=== PATIENT | female | born 1950 | race Caucasian/White ===

== ENCOUNTER → 2023-12-13 | Outpatient (CLI) | payer OTHER ==
[2023-12-13 09:03] LABS: Basophils # (auto) 0 10 ^3/uL (0-0.2); Basophils % (auto) 0.6 % (0.0-2.0); Eosinophils # (auto) 0.2 10 ^3/uL (0-0.8); Eosinophils % (auto) 2.8 % (0.0-7.0); Hematocrit 46.7 % (36.0-46.0); Hemoglobin 15.8 g/dL (12.2-16.2); Lymphocytes % (auto) 30.3 % (10.0-50.0); Mean Corpuscular Hemoglobin 29.6 pg (28.0-32.0); Mean Corpuscular Hgb Conc. 33.8 g/dL (32.0-36.0); Mean Corpuscular Volume 87.4 fL (80.0-100.0); Monocytes # (auto) 0.5 10 ^3/uL (0-1.3); Monocytes % (auto) 7.5 % (0.0-12.0); Neutrophils # (auto) 3.9 10 ^3/uL (1.6-8.6); Neutrophils % (auto) 58.8 % (37.0-80.0); Nucleated Red Blood Cells % 0.1 %; Red Blood Cells 5.35 10^6/uL (4.0-5.20); Red Cell Distribution Width 13.9 % (11.8-14.3); White Blood Cell 6.6 10^3/uL (4.4-10.8)
[2023-12-13 09:20] LABS: Urine Bacteria FEW /hpf (None Seen); Urine Blood 3+ /uL (Negative); Urine Clarity Clear (Clear); Urine Color Yellow (Yellow); Urine Hyaline Cast FEW /lpf (0 - 2); Urine Mucus FEW (None Seen); Urine Protein, UAD TRACE (Negative); Urine Specific Gravity 1.023 (1.001-1.035); Urine Urobilinogen Normal (Negative); Urine WBC 37 /hpf (0 - 5)
[2023-12-13 09:22] LABS: Alanine Aminotransferase 15 U/L (7-40); Alkaline Phosphatase 79 U/L (46-116); Anion Gap 5 (5-15); Aspartate Aminotransferase 48 U/L (13-40); BUN/Creatinine Ratio 14.4 (10.0-20.0); Bilirubin, Total 0.6 mg/dL (0.2-1.0); Blood Urea Nitrogen 13 mg/dL (9-23); Calcium 10.4 mg/dL (8.7-10.4); Carbon Dioxide 27 mmol/L (20-30); Chloride 103 mmol/L (98-107); Glucose 93 mg/dL (74-106); Potassium 3.8 mmol/L (3.5-5.1); Sodium 135 mmol/L (136-145); Uric Acid 5.9 mg/dL (3.1-7.8)
[2023-12-13 09:23] LABS: Total Protein 7.5 g/dL (5.7-8.2)
[2023-12-13 09:25] LABS: Folate (Folic Acid) > 24.00 ng/mL (>5.38)
[2023-12-13 09:26] LABS: Free T4 (Free Thyroxine) 1.03 ng/dL (0.89-1.76)
[2023-12-13 09:41] LABS: Triglycerides 128 mg/dL (< 150)
[2023-12-13 09:42] LABS: CRP High Sensitivity 0.51 mg/dL (<1.0); LDL Cholesterol 89 mg/dL (< 100)
[2023-12-13 09:43] LABS: HDL Cholesterol 38 mg/dL (40-59)
[2023-12-13 09:44] LABS: Cholesterol 139 mg/dL (< 200)
[2023-12-13 10:04] LABS: Erythrocyte Sedimentation Rate 15 mm/hr (0-20)
[2023-12-14 08:07] LABS: Anti-Nuclear Antibody Direct Negative (Negative); Rheumatoid Arthritis Factor <10.0 IU/mL (<14.0)
== END | disposition home or self-care (01) ==
LOC: LAB 08:28
PROVIDERS: ATTEND Internal Medicine
DX: D51.9 Vitamin B12 deficiency anemia, unspecified (principal); E61.2 Magnesium deficiency; E78.9 Disorder of lipoprotein metabolism, unspecified; R68.89 Other general symptoms and signs; R78.89 Finding of other specified substances, not normally found in blood; R73.09 Other abnormal glucose; E79.0 Hyperuricemia without signs of inflammatory arthritis and tophaceous disease; E85.9 Amyloidosis, unspecified; R82.90 Unspecified abnormal findings in urine
CPT/HCPCS: 36415; 80053; 80061; 81001; 82306; 82607; 82746; 83036; 83735; 84439; 84443; 84550; 85025; 85652; 86038; 86141; 86200; 86431; 86812; 87086

== ENCOUNTER → 2024-03-12 | Outpatient (CLI) | payer OTHER ==
[2024-03-12 14:08] LABS: Urine Bacteria None Seen /hpf (None Seen)
[2024-03-12 14:11] LABS: Basophils # (auto) 0 10 ^3/uL (0-0.2); Basophils % (auto) 0.7 % (0.0-2.0); Eosinophils # (auto) 0.2 10 ^3/uL (0-0.8); Eosinophils % (auto) 3.7 % (0.0-7.0); Hematocrit 44.7 % (36.0-46.0); Hemoglobin 14.9 g/dL (12.2-16.2); Lymphocytes # (auto) 2.3 10 ^3/uL (0.4-5.4); Lymphocytes % (auto) 34.9 % (10.0-50.0); Mean Corpuscular Hemoglobin 29.8 pg (28.0-32.0); Mean Corpuscular Hgb Conc. 33.2 g/dL (32.0-36.0); Mean Corpuscular Volume 89.6 fL (80.0-100.0); Monocytes # (auto) 0.5 10 ^3/uL (0-1.3); Monocytes % (auto) 7.4 % (0.0-12.0); Neutrophils # (auto) 3.6 10 ^3/uL (1.6-8.6); Neutrophils % (auto) 53.3 % (37.0-80.0); Nucleated Red Blood Cells % 0.1 %; Red Blood Cells 4.99 10^6/uL (4.0-5.20); Red Cell Distribution Width 13.7 % (11.8-14.3); White Blood Cell 6.7 10^3/uL (4.4-10.8)
[2024-03-12 14:35] LABS: Urine Blood 2+ /uL (Negative); Urine Budding Yeast OCCASIONAL /hpf (None Seen); Urine Clarity Clear (Clear); Urine Color Yellow (Yellow); Urine Protein, UAD Negative (Negative); Urine Urobilinogen Normal (Negative); Urine WBC 3 /hpf (0 - 5); Urine pH 6.5 (5.0-9.0)
[2024-03-12 14:43] LABS: Alanine Aminotransferase < 9 U/L (7-40); Albumin 4.9 g/dL (3.2-4.8); Alkaline Phosphatase 102 U/L (46-116); Anion Gap 7 (5-15); Aspartate Aminotransferase 25 U/L (13-40); BUN/Creatinine Ratio 20.2 (10.0-20.0); Blood Urea Nitrogen 20 mg/dL (9-23); Calcium 10.8 mg/dL (8.5-10.1); Carbon Dioxide 26 mmol/L (20-30); Chloride 109 mmol/L (98-107); Cholesterol 156 mg/dL (< 200); Glucose 88 mg/dL (74-106); HDL Cholesterol 46 mg/dL (40-59); LDL Cholesterol 97 mg/dL (< 100); Magnesium 2.1 mg/dL (1.6-2.6); Potassium 4.2 mmol/L (3.5-5.1); Sodium 142 mmol/L (136-145); Triglycerides 126 mg/dL (< 150)
[2024-03-12 14:44] LABS: Bilirubin, Total 0.4 mg/dL (0.2-1.0); Total Protein 7.1 g/dL (5.7-8.2)
[2024-03-12 15:10] LABS: Folate (Folic Acid) > 48.00 ng/mL (>5.38)
[2024-03-12 15:23] LABS: Uric Acid 5.9 mg/dL (3.1-7.8)
== END | disposition home or self-care (01) ==
LOC: LAB 13:53
PROVIDERS: ATTEND Internal Medicine
DX: E78.9 Disorder of lipoprotein metabolism, unspecified (principal); R78.89 Finding of other specified substances, not normally found in blood; R68.89 Other general symptoms and signs; R73.09 Other abnormal glucose; E61.2 Magnesium deficiency; E79.0 Hyperuricemia without signs of inflammatory arthritis and tophaceous disease; E85.9 Amyloidosis, unspecified; R82.90 Unspecified abnormal findings in urine; D51.9 Vitamin B12 deficiency anemia, unspecified
CPT/HCPCS: 36415; 80053; 80061; 81001; 82306; 82607; 82746; 83036; 83735; 84443; 84550; 85025; 87086

== ENCOUNTER → 2024-06-12 | Outpatient (CLI) | payer OTHER ==
[2024-06-12 12:41] LABS: Urine Bacteria None Seen /hpf (None Seen)
[2024-06-12 13:21] LABS: Albumin 4.6 g/dL (3.2-4.8); Alkaline Phosphatase 100 U/L (46-116); Anion Gap 5 (5-15); Aspartate Aminotransferase 25 U/L (13-40); BUN/Creatinine Ratio 19.1 (10.0-20.0); Bilirubin, Total 0.4 mg/dL (0.2-1.0); Blood Urea Nitrogen 18 mg/dL (9-23); Calcium 10.4 mg/dL (8.7-10.4); Carbon Dioxide 26 mmol/L (20-30); Chloride 111 mmol/L (98-107); Cholesterol 165 mg/dL (< 200); Glucose 91 mg/dL (74-106); HDL Cholesterol 41 mg/dL (40-59); LDL Cholesterol 106 mg/dL (< 100); Magnesium 2.1 mg/dL (1.6-2.6); Sodium 142 mmol/L (136-145); Total Protein 6.9 g/dL (5.7-8.2); Triglycerides 144 mg/dL (< 150)
[2024-06-12 13:24] LABS: Urine Blood Negative /uL (Negative); Urine Clarity Clear (Clear); Urine Color Yellow (Yellow); Urine Protein, UAD Negative (Negative); Urine Specific Gravity 1.024 (1.001-1.035); Urine Urobilinogen Normal (Negative); Urine WBC 19 /hpf (0 - 5)
[2024-06-12 13:27] LABS: Alanine Aminotransferase < 9 U/L (7-40)
[2024-06-12 13:39] LABS: Folate (Folic Acid) 42.14 ng/mL (>5.38)
[2024-06-12 13:46] LABS: Uric Acid 6.4 mg/dL (3.1-7.8)
== END | disposition home or self-care (01) ==
LOC: LAB 12:21
PROVIDERS: ATTEND Internal Medicine
DX: E78.00 Pure hypercholesterolemia, unspecified (principal); E55.9 Vitamin D deficiency, unspecified; Z68.38 Body mass index [BMI] 38.0-38.9, adult
CPT/HCPCS: 36415; 80053; 80061; 81001; 82306; 82607; 82746; 83036; 83735; 84443; 84550; 87086

== ENCOUNTER → 2024-07-24 | Outpatient (CLI) | payer OTHER ==
[2024-07-24 13:24] LABS: Free T3 2.83 pg/mL (2.3-4.2)
[2024-07-24 13:25] LABS: Free T4 (Free Thyroxine) 1.43 ng/dL (0.89-1.76); T3 Total 1.24 ng/mL (0.60-1.81)
[2024-07-25 08:06] LABS: Free Thyroxine Index 3.2 (1.2-4.9); Thyroxine (T4) 12.2 ug/dL (4.5-12.0)
== END | disposition home or self-care (01) ==
LOC: LAB 11:22
PROVIDERS: ATTEND Internal Medicine
DX: E03.9 Hypothyroidism, unspecified (principal); E55.9 Vitamin D deficiency, unspecified; M54.2 Cervicalgia
CPT/HCPCS: 36415; 84439; 84443; 84480; 84481

== ENCOUNTER → 2024-09-12 | Outpatient (CLI) | payer OTHER ==
[2024-09-12 08:18] LABS: Urine Bacteria None Seen /hpf (None Seen)
[2024-09-12 09:01] LABS: Urine Blood Negative /uL (Negative); Urine Clarity Clear (Clear); Urine Color Light-Yellow (Yellow); Urine Protein, UAD Negative (Negative); Urine Urobilinogen Normal (Negative); Urine WBC 6 /hpf (0 - 5); Urine pH 5.5 (5.0-9.0)
[2024-09-12 09:10] LABS: Basophils # (auto) 0.1 10 ^3/uL (0-0.2); Eosinophils # (auto) 0.3 10 ^3/uL (0-0.8); Eosinophils % (auto) 5.5 % (0.0-7.0); Hematocrit 44.6 % (36.0-46.0); Lymphocytes # (auto) 2.1 10 ^3/uL (0.4-5.4); Lymphocytes % (auto) 34.9 % (10.0-50.0); Mean Corpuscular Hemoglobin 30.3 pg (28.0-32.0); Mean Corpuscular Hgb Conc. 33.7 g/dL (32.0-36.0); Monocytes # (auto) 0.6 10 ^3/uL (0-1.3); Monocytes % (auto) 10.6 % (0.0-12.0); Neutrophils # (auto) 2.8 10 ^3/uL (1.6-8.6); Nucleated Red Blood Cells % 0.1 %; Platelet Count (auto) 206 10^3/uL (140-450); Red Blood Cells 4.95 10^6/uL (4.0-5.20); Red Cell Distribution Width 14.1 % (11.8-14.3); White Blood Cell 5.9 10^3/uL (4.4-10.8)
[2024-09-12 10:14] LABS: Alkaline Phosphatase 93 U/L (46-116)
[2024-09-12 10:15] LABS: Anion Gap 9 (5-15); BUN/Creatinine Ratio 25.6 (10.0-20.0); Blood Urea Nitrogen 23 mg/dL (9-23); Calcium 10.8 mg/dL (8.7-10.4); Carbon Dioxide 27 mmol/L (20-31); Chloride 108 mmol/L (98-107); Glucose 92 mg/dL (74-106); Potassium 4.2 mmol/L (3.5-5.1); Sodium 144 mmol/L (136-145); Triglycerides 194 mg/dL (< 150)
[2024-09-12 10:16] LABS: Albumin 4.4 g/dL (3.2-4.8); Aspartate Aminotransferase 23 U/L (13-40); LDL Cholesterol 68 mg/dL (< 100)
[2024-09-12 10:17] LABS: Bilirubin, Total 0.5 mg/dL (0.2-1.0); Cholesterol 129 mg/dL (< 200); HDL Cholesterol 41 mg/dL (40-59)
[2024-09-12 10:18] LABS: Total Protein 6.8 g/dL (5.7-8.2)
[2024-09-12 10:32] LABS: Alanine Aminotransferase < 9 U/L (7-40)
[2024-09-12 11:25] LABS: Free T3 4.4 pg/mL (2.3-4.2); Free T4 (Free Thyroxine) 1.77 ng/dL (0.89-1.76); T3 Total 1.55 ng/mL (0.60-1.81)
== END | disposition home or self-care (01) ==
LOC: LAB 07:49
PROVIDERS: ATTEND Internal Medicine
DX: J06.9 Acute upper respiratory infection, unspecified (principal); E55.9 Vitamin D deficiency, unspecified; E03.9 Hypothyroidism, unspecified; D51.9 Vitamin B12 deficiency anemia, unspecified; R82.79 Other abnormal findings on microbiological examination of urine; E79.0 Hyperuricemia without signs of inflammatory arthritis and tophaceous disease; R94.6 Abnormal results of thyroid function studies; E61.2 Magnesium deficiency
CPT/HCPCS: 36415; 80053; 80061; 81001; 82306; 82607; 83036; 84439; 84443; 84480; 84481; 85025; 87086

== ENCOUNTER → 2025-01-15 | Outpatient (CLI) | payer OTHER ==
[2025-01-15 08:48] LABS: Urine Bacteria None Seen /hpf (None Seen)
[2025-01-15 09:05] LABS: Basophils # (auto) 0 10 ^3/uL (0-0.2); Basophils % (auto) 0.7 % (0.0-2.0); Eosinophils # (auto) 0.2 10 ^3/uL (0-0.8); Hematocrit 40.9 % (36.0-46.0); Hemoglobin 14.1 g/dL (12.2-16.2); Lymphocytes # (auto) 1.7 10 ^3/uL (0.4-5.4); Mean Corpuscular Hemoglobin 30.4 pg (28.0-32.0); Mean Corpuscular Hgb Conc. 34.3 g/dL (32.0-36.0); Mean Corpuscular Volume 88.4 fL (80.0-100.0); Monocytes # (auto) 0.5 10 ^3/uL (0-1.3); Monocytes % (auto) 7.6 % (0.0-12.0); Neutrophils # (auto) 3.9 10 ^3/uL (1.6-8.6); Neutrophils % (auto) 61.7 % (37.0-80.0); Platelet Count (auto) 267 10^3/uL (140-450); Red Blood Cells 4.63 10^6/uL (4.0-5.20); Red Cell Distribution Width 14.8 % (11.8-14.3); White Blood Cell 6.4 10^3/uL (4.4-10.8)
[2025-01-15 09:06] LABS: Urine Blood Negative /uL (Negative); Urine Clarity Clear (Clear); Urine Color Light-Yellow (Yellow); Urine Mucus FEW (None Seen); Urine Protein, UAD Negative (Negative); Urine Specific Gravity 1.025 (1.001-1.035); Urine Squamous Epithelial Cell FEW /hpf (<5); Urine Urobilinogen Normal (Negative); Urine WBC 3 /HPF (0-5)
[2025-01-15 09:26] LABS: Alkaline Phosphatase 92 U/L (46-116); Anion Gap 6 (5-15); BUN/Creatinine Ratio 24.3 (10.0-20.0); Carbon Dioxide 28 mmol/L (20-31); Glucose 97 mg/dL (74-106); LDL Cholesterol 68 mg/dL (< 100); Potassium 4.1 mmol/L (3.5-5.1); Sodium 143 mmol/L (136-145); Total Protein 6.9 g/dL (5.7-8.2); Triglycerides 138 mg/dL (< 150)
[2025-01-15 09:27] LABS: Albumin 4.7 g/dL (3.2-4.8); Aspartate Aminotransferase 18 U/L (13-40); Bilirubin, Total 0.4 mg/dL (0.2-1.0); Cholesterol 130 mg/dL (< 200); HDL Cholesterol 43 mg/dL (40-59)
[2025-01-15 09:28] LABS: Alanine Aminotransferase < 9 U/L (7-40); Blood Urea Nitrogen 26 mg/dL (9-23); Calcium 10.7 mg/dL (8.7-10.4); Chloride 109 mmol/L (98-107)
[2025-01-15 09:32] LABS: Folate (Folic Acid) 20.67 ng/mL (>5.38)
[2025-01-15 09:57] LABS: Uric Acid 6.4 mg/dL (3.1-7.8)
== END | disposition home or self-care (01) ==
LOC: LAB 08:33
PROVIDERS: ATTEND Internal Medicine
DX: E61.2 Magnesium deficiency (principal); E55.9 Vitamin D deficiency, unspecified; D51.9 Vitamin B12 deficiency anemia, unspecified; E78.49 Other hyperlipidemia; E79.0 Hyperuricemia without signs of inflammatory arthritis and tophaceous disease; R94.6 Abnormal results of thyroid function studies; R82.79 Other abnormal findings on microbiological examination of urine; R82.998 Other abnormal findings in urine; R73.09 Other abnormal glucose; R68.89 Other general symptoms and signs; R82.90 Unspecified abnormal findings in urine
CPT/HCPCS: 36415; 80053; 80061; 81001; 82306; 82607; 82746; 83036; 84443; 84550; 85025; 87086

== ENCOUNTER 2025-04-08 14:10 | Outpatient (CLI) | payer OTHER | END 2025-04-08 17:00 | disposition home or self-care (01) | LOC: LAB 14:10 | PROVIDERS: ATTEND Internal Medicine Endocrinology, Diabetes & Metabolism | DX: E03.9 Hypothyroidism, unspecified (principal) | CPT/HCPCS: 36415; 84439; 84443; 86376 ==

== ENCOUNTER → 2025-04-30 | Outpatient (CLI) | payer OTHER | END | disposition home or self-care (01) | LOC: LAB 14:24 | PROVIDERS: ATTEND Internal Medicine Endocrinology, Diabetes & Metabolism | DX: E03.9 Hypothyroidism, unspecified (principal) | CPT/HCPCS: 36415; 84439; 84443 ==

== ENCOUNTER 2025-06-16 08:04 | Outpatient (CLI) | payer OTHER ==
[2025-06-16 09:09] LABS: Hematocrit 43.0 % (36.0-46.0); Hemoglobin 14.6 g/dL (12.2-16.2); Mean Corpuscular Hemoglobin 30.8 pg (28.0-32.0); Mean Corpuscular Volume 90.6 fL (80.0-100.0); Nucleated Red Blood Cells % 0.1 %
[2025-06-16 09:14] LABS: Urine Protein, UAD Negative (Negative)
[2025-06-16 09:27] LABS: Alanine Aminotransferase 17 U/L (7-40); Alkaline Phosphatase 81 U/L (46-116); Anion Gap 9 (5-15); BUN/Creatinine Ratio 14.5 (10.0-20.0); Blood Urea Nitrogen 19 mg/dL (9-23); Calcium 10.1 mg/dL (8.7-10.4); Carbon Dioxide 26 mmol/L (20-31); Chloride 105 mmol/L (98-107); Glucose 80 mg/dL (74-106); Magnesium 1.9 mg/dL (1.6-2.6); Potassium 4.2 mmol/L (3.5-5.1); Sodium 140 mmol/L (136-145); Total Protein 6.3 g/dL (5.7-8.2); Triglycerides 124 mg/dL (< 150)
[2025-06-16 09:28] LABS: Albumin 4.6 g/dL (3.2-4.8); Cholesterol 149 mg/dL (< 200); HDL Cholesterol 47 mg/dL (40-59)
[2025-06-16 09:31] LABS: Bilirubin, Total 0.2 mg/dL (0.2-1.0)
[2025-06-16 10:19] LABS: Uric Acid 6.4 mg/dL (3.1-7.8)
[2025-06-16 10:59] LABS: Free T4 (Free Thyroxine) 0.61 ng/dL (0.89-1.76)
== END 2025-06-16 17:00 | disposition home or self-care (01) ==
LOC: LAB 08:04
PROVIDERS: ATTEND Internal Medicine
DX: E11.9 Type 2 diabetes mellitus without complications (principal); E03.9 Hypothyroidism, unspecified; E78.49 Other hyperlipidemia; E61.2 Magnesium deficiency; E66.3 Overweight; E79.0 Hyperuricemia without signs of inflammatory arthritis and tophaceous disease; E55.9 Vitamin D deficiency, unspecified; D51.9 Vitamin B12 deficiency anemia, unspecified; R82.79 Other abnormal findings on microbiological examination of urine; R13.19 Other dysphagia; R68.89 Other general symptoms and signs; R82.90 Unspecified abnormal findings in urine; R82.998 Other abnormal findings in urine; R94.6 Abnormal results of thyroid function studies
CPT/HCPCS: 36415; 80053; 80061; 81001; 82306; 82533; 82607; 82746; 83036; 83735; 84436; 84439; 84443; 84480; 84550; 85025; 87086

== ENCOUNTER 2025-08-11 08:53 | Outpatient (CLI) | payer OTHER | END 2025-08-11 17:00 | disposition home or self-care (01) | LOC: LAB 08:53 | PROVIDERS: ATTEND Internal Medicine Endocrinology, Diabetes & Metabolism | DX: E03.9 Hypothyroidism, unspecified (principal); E66.3 Overweight | CPT/HCPCS: 36415; 82533; 84439; 84443 ==

== ENCOUNTER 2025-09-08 09:58 | Outpatient (CLI) | payer OTHER ==
[2025-09-08 10:44] LABS: Urine Protein, UAD Negative (Negative)
[2025-09-08 10:46] LABS: Hematocrit 43.5 % (36.0-46.0); Hemoglobin 14.9 g/dL (12.2-16.2); Mean Corpuscular Hemoglobin 31.3 pg (28.0-32.0); Mean Corpuscular Volume 91.5 fL (80.0-100.0); Nucleated Red Blood Cells % 0.1 %
[2025-09-08 11:05] LABS: Alanine Aminotransferase 32 U/L (7-40); Albumin 4.7 g/dL (3.2-4.8); Alkaline Phosphatase 84 U/L (46-116); BUN/Creatinine Ratio 18.4 (10.0-20.0); Calcium 10.3 mg/dL (8.7-10.4); Carbon Dioxide 28 mmol/L (20-31); Cholesterol 167 mg/dL (< 200); Glucose 90 mg/dL (74-106); HDL Cholesterol 50 mg/dL (40-59); Magnesium 2.1 mg/dL (1.6-2.6); Potassium 4.2 mmol/L (3.5-5.1); Sodium 144 mmol/L (136-145); Total Protein 7.2 g/dL (5.7-8.2)
[2025-09-08 11:06] LABS: Bilirubin, Total 0.4 mg/dL (0.2-1.0)
[2025-09-08 11:09] LABS: Blood Urea Nitrogen 23 mg/dL (9-23); Triglycerides 167 mg/dL (< 150)
[2025-09-08 11:17] LABS: Anion Gap 7 (5-15); Chloride 109 mmol/L (98-107)
== END 2025-09-08 17:00 | disposition home or self-care (01) ==
LOC: LAB 09:58
PROVIDERS: ATTEND Internal Medicine
DX: N18.31 Chronic kidney disease, stage 3a (principal); E03.9 Hypothyroidism, unspecified; E78.00 Pure hypercholesterolemia, unspecified; E55.9 Vitamin D deficiency, unspecified
CPT/HCPCS: 36415; 80053; 80061; 81001; 82306; 82607; 83036; 83735; 84443; 85025; 87086

== ENCOUNTER 2025-09-16 03:39 | Inpatient (IN) | payer OTHER ==
[~2025-09-16] VITALS: Ht 160 cm; Wt 77.1 kg
--- NOTE | 2025-09-16 04:04 | ED.PDOC ---
History of Present Illness HPI Comments 74-year-old female who is brought in by ambulance for chief complaint of confusion. Per EMS personnel report, patient is a transfer from [facility] after being found with a UTI when, initially, evaluated for confusion, which began this morning. Patient has a history of frequent UTIs. She has no further acute complaints at this time. REVIEW OF SYSTEMS: General: No fever, no chills, or fatigue HEENT: No sore throat, no earache, no congestion, no neck pain. Cardiac: No chest pain. No palpitations. Lungs: No shortness of breath, no cough. GI: No nausea, no vomiting, no diarrhea, no constipation, no abdominal pain : No dysuria, frequency, or urgency. No hematuria. Musculoskeletal: No joint pain , no joint swelling, no extremity edema. Skin: No rash, no itching. Neuro: No headache, no dizziness, no weakness Psychiatric: Confusion (And as sated in HPI) PHYSICAL EXAM: General: Awake, alert and oriented. No acute distress. Skin: Skin in warm, dry and intact. Appropriate color for ethnicity. HEENT: The head is normocephalic and atraumatic. Conjunctivae are clear without exudates or hemorrhage. Sclera is non-icteric. Eyelids are normal in appearance without swelling or lesions. Oral mucosa is pink and moist Neck: The neck is supple with normal range of motion. No JVD. Cardiac: Heart rate and rhythm are normal. No murmurs, gallops, or rubs are auscultated. Respiratory: No signs of respiratory distress. Lung sounds are clear in all lobes bilaterally without rales, rhonchi, or wheezes. Abdominal: Abdomen is soft, non-tender without distention, guarding or rigidity. Bowel sounds are present and normoactive in all four quadrants. Extremities: Upper and lower extremities are atraumatic in appearance without deformity or edema. Neurological: The patient is awake, alert and oriented to person, place, but not time with normal speech. Speech is clear. There is no facial asymmetry. Psychiatric: Appropriate mood and affect. Good judgement and insight. Chief Complaint: Confusion Time Seen by MD: 03:50 (Quick no) Reviewed Notes: Nurses Notes, Materials Analyst Notes Allergies: Coded Allergies: NO KNOWN ALLERGIES (Unverified , 09/16/25) Information Source: Patient, Transfer Record, Emergency Med Personnel Mode of Arrival: EMS Severity: Moderate Timing: Hours Duration: Since onset Prehospital treatment: 12 Lead EKG, Accucheck, Emergency Dept Tech Past Medical History PAST MEDICAL HISTORY: UTI'S Social History Smoker: Non-Smoker Alcohol: Denies ETOH Use Drugs: Denies Drug Use Lives In: Home Was a procedure done? Was a procedure done?: No EKG EKG : [place]: Normal Cardiac Rhythm: NSR Block: None Hypertrophy: None ST: Normal Differential Dx Considerations may include: Differential diagnosis considered includes but not limited to intracranial hemorrhage, stroke, head injury, seizure, metabolic disturbance, electrolyte imbalance, infection, substance intoxication, psychiatric cause, other systemic illness, other X-Ray, Labs, Meds, VS Vital Signs Date Time Temp Pulse Resp B/P (MAP) Pulse Ox O2 Delivery O2 Flow Rate FiO2 09/16/25 03:50 97.8 58 16 138/78 98 97.8 09/16/25 03:50 63 Lab Test 09/16/25 04:15 Range/Units White Blood Count Pending Red Blood Count Pending Hemoglobin Pending Hematocrit Pending Mean Corpuscular Volume Pending Mean Corpuscular Hemoglobin Pending Mean Corpuscular Hemoglobin Concent Pending Red Cell Distribution Width Pending Platelet Count Pending Mean Platelet Volume Pending Neutrophils (%) (Auto) Pending Lymphocytes (%) (Auto) Pending Monocytes (%) (Auto) Pending Basophils (%) (Auto) Pending Neutrophils # (Auto) Pending Lymphocytes # (Auto) Pending Monocytes # (Auto) Pending Sodium Level Pending Potassium Level Pending Chloride Level Pending Carbon Dioxide Level Pending Anion Gap Pending Blood Urea Nitrogen Pending Creatinine Pending Glomerular Filtration Rate Calc Pending BUN/Creatinine Ratio Pending Serum Glucose Pending Calcium Level Pending Time of 1ST Reevaluation: 03:57 Reevaluation 1ST: Unchanged Patient Education/Counseling: Need For Follow Up Family Education/Counseling: No Family Present SEPSIS Sepsis Screen Physician Orders Complete Blood Count (09/16/25 03:49) Basic Metabolic Panel (09/16/25 03:49) Urinalysis (09/16/25 03:49) Vital Signs Date Time Temp Pulse Resp B/P (MAP) Pulse Ox O2 Delivery O2 Flow Rate FiO2 09/16/25 03:50 97.8 58 16 138/78 98 97.8 09/16/25 03:50 63 Laboratory Tests Test 09/16/25 04:15 White Blood Count Pending Departure 1 Departure Time of Disposition: 04:26 Impression: Primary Impression: Altered mental status Additional Impression: UTI (urinary tract infection) Disposition: ADMITTED INPATIENT Condition: Stable Comments MDM: Patient admitted to hospitalist service for further treatment, evaluation and monitoring. Extensive evaluation was performed in attempt to identify or rule out: (See differential diagnosis section) The following tests were ordered, and results were reviewed by me and discussed with patient: (See diagnostic results section) The following test were independently interpreted by me: UA, BMP, CBC I reviewed the following notes from the pt's past medical encounters: Encounter 09/15/2025 for [facility] Additional information was gathered from interviewing the following independent historians: EMS personnel Decision regarding hospitalization or escalation of hospital level of care: Risk and benefits of admission for further treatment of patient's condition was considered. Due to patient's current clinical condition, high risk of decline and poor outcome if discharged and need for further inpatient management and monitoring, patient will be admitted to the hospital. Critical Care Note Critical Care Time?: No Stability Stability form required: No Heart Score Heart Score: Heart Score Response (Comments) Value History N/A 0 EKG N/A 0 Age N/A 0 Risk Factors N/A 0 Troponin N/A 0 Total 0 I personally scribed for KAY COLEY MD ([email or web address]) on 09/16/25 at 04:04. Electronically submitted by Young Rivero ([email or web address]). KAY COLEY MD Sep 16, 2025 04:04
--- NOTE | 2025-09-16 04:17 | ECG ---
[facility] Test Date: 2025-09-16 Test Time: 03:50:30 Pat Name: MARY SOW Department: ED Room: [address] [place] [address] Gender: F Client Support Analyst: DEYSI : 1950 Requested By: KAY COLEY Order Number: [id number] Reading MD: Asad Hill Measurements Intervals Walsh Rate: 63 P: 11 CA: 126 QRS: -62 QRSD: 118 T: 85 QT: 437 QTc: 448 Interpretive Statements Sinus rhythm Ventricular premature complex Left anterior fascicular block Probable anterolateral infarct, old Electronically Signed On 09-16-2025 18:00:18 PST by Asad Hill Please click the below link to view image of tracing.
[2025-09-16 04:39] LABS: Hematocrit 41.3 % (36.0-46.0); Hemoglobin 14.2 g/dL (12.2-16.2); Mean Corpuscular Hemoglobin 31.2 pg (28.0-32.0); Mean Corpuscular Volume 90.8 fL (80.0-100.0); Nucleated Red Blood Cells % 0.0 %
[2025-09-16 04:44] VITALS: PULSE 55; RESP 12; O2SAT 99
[2025-09-16 04:44] LABS: Potassium 3.5 mmol/L (3.5-5.1); Sodium 142 mmol/L (136-145)
[2025-09-16 04:45] LABS: Anion Gap 10 (5-15); Carbon Dioxide 21 mmol/L (20-31); Chloride 111 mmol/L (98-107)
[2025-09-16 04:46] LABS: Calcium 9.9 mg/dL (8.7-10.4)
[2025-09-16 04:50] LABS: Glucose 84 mg/dL (74-106)
[2025-09-16 04:51] LABS: BUN/Creatinine Ratio 20.0 (10.0-20.0); Blood Urea Nitrogen 19 mg/dL (9-23)
[2025-09-16 07:30] VITALS: PULSE 60; RESP 10; O2SAT 98
[2025-09-16 11:08] LABS: Urine Budding Yeast OCCASIONAL /hpf (None Seen); Urine Protein, UAD Negative (Negative)
[2025-09-16] MEDS ORDERED: ONDANSETRON HCL 4 MG/2 ML VIAL IV PRN (13:15)
[2025-09-16] MEDS ORDERED: ACETAMINOPHEN 325 MG TAB PO PRN (13:15)
[2025-09-16] MEDS ORDERED: DOCUSATE SOD 100 MG CAP PO PRN (13:15)
[2025-09-16] MEDS ORDERED: ROSU10TA64 PO (14:08)
[2025-09-16] MEDS ORDERED: LEVO100T8 PO (14:08)
[2025-09-16] MEDS ORDERED: LISI40TA16 PO (14:08)
[2025-09-16] MEDS ORDERED: RAME8TAB26 PO (14:08)
[2025-09-16] MEDS ORDERED: ROPI1TAB78 PO (14:08)
[2025-09-16] MEDS ORDERED: CITA-77 PO (14:08)
[2025-09-16] MEDS ORDERED: GABA800T97 PO (14:08)
--- NOTE | 2025-09-16 14:30 | DVHHP2 ---
History of Present Illness Reason for Visit: AL History of Present Illness Tiffanie Ospina is a 74-year-old female with past medical history of hypertension, peripheral neuropathy, and hypothyroidism, who came to the hospital for altered level of consciousness. The patient's earlier this year. She lives alone and her son lives in [place], they talk on the phone everyday. Yesterday when they were talking he noticed that she was confused and having a hard time keeping a conversation or answering simple questions. He then had a friend go to her house to check on her. When the friend arrived the patient was altered so she brought her to [facility]. At [facility] they did a head CT, and CTA of head and neck that came back normal. Her urine showed a UTI. Patient was transferred to [facility] for insurance purposes. [id number] was at the bedside on assessment, she states her mentation is already improved from where she was yesterday. Cardiovascular: HTN LOCAL GOVERNMENT LEGISLATOR: Periperal neuropathy Endocrine: Hypothyroidism Past Surgical History: Appendectomy, Tonsillectomy Smoke: No ALCOHOL: none Drugs: Marijuana Lives: Alone Domestic Violence: Neg Review of Systems Constitutional: No: Fever, Chills, Sweats, Weakness, Malaise, Other Eyes: No: Pain, Vision change, Conjunctivae inflammation, Eyelid inflammation, Other, Redness ENT: No: Ear pain, Ear discharge, Nose pain, Nose discharge, Nose congestion, Mouth pain, Mouth swelling, Throat pain, Throat swelling, Other Respiratory: No: Cough, Dry, Shortness of breath, SOB with excertion, Wheezing, Hemoptysis, Pleuritic Pain, Sputum, Wheezing, Other Cardiovascular: No: Chest Pain, Palpitations, Orthopnea, Paroxysmal Noc. Dyspnea, Edema, Lt Headedness, Other Gastrointestinal: No: Nausea, Vomiting, Abdominal Pain, Diarrhea, Constipation, Melena, Hematochezia, Other Genitourinary: No Dysuria, No Frequency, No Incontinence, No Hematuria, No Retention, No Other Musculoskeletal: No: other, neck pain, shoulder pain, arm pain, back pain, hand pain, leg pain, foot pain Skin: No: Rash, Lesions, Jaundice, Bruising, Other Neurological: Change in speech, Confusion; No: Weakness, Numbness, Incoordination, Seizures, Other Allergies: Coded Allergies: NO KNOWN ALLERGIES (Unverified , 09/16/25) Medications Current Medications Medications Dose Ordered Sig/Adrian Route Start Time Stop Time Status Last Admin Dose Admin Acetaminophen/ Hydrocodone Bitart 1 tab Q4HP PRN PO 09/16/25 13:15 UNV Ondansetron HCl 4 mg Q4HP PRN IV 09/16/25 13:15 UNV Docusate Sodium 100 mg BIDPRN PRN PO 09/16/25 13:15 UNV Acetaminophen 650 mg Q6HP PRN PO 09/16/25 13:15 UNV Exam Vital Signs Vital Signs Date Time Temp Pulse Resp B/P (MAP) Pulse Ox O2 Delivery O2 Flow Rate FiO2 09/16/25 13:00 55 11 14/77 (56) 96 09/16/25 07:30 97.9 97.9 09/16/25 07:30 Room Air* 0 21 General Appearance: Alert, Cooperative, mild distress, Other (Oriented x 1 ) HEENT: Atraumatic, PERRLA Respiratory: Clear to auscultation, Normal air movement Cardiovascular: Normal S1, Normal S2, No murmurs, Other (SB) Abdominal: Normal bowel sounds, Soft, No tenderness, No hepatospenomegaly Extremities: No clubbing, No cyanosis, No edema, Normal pulses Skin: No rashes, No breakdown, No significant lesion Neuro: Normal gait, Normal speech, Strength at 5/5 X4 ext, Normal tone Psych/Mental Status: Mood NL Labs/Xrays Labs Test 09/16/25 10:48 09/16/25 04:15 Range/Units Urine Color Yellow Yellow Urine Clarity Clear Clear Urine pH 7.5 5.0-9.0 Urine Specific [place] 1.042 H 1.001-1.035 Urine Protein Negative Negative Urine Ketones Negative Negative Urine Blood Negative Negative /uL Urine Nitrite Negative Negative Urine Bilirubin Negative Negative Urine Urobilinogen Normal Negative mg/dL Urine Leukocyte Esterase 2+ Negative /uL Urine RBC 3 0 - 4 /hpf Urine Microscopic WBC 12 H 0-5 /HPF Urine Squamous Epithelial Cells Few <5 /hpf Urine Bacteria None seen None Seen /hpf Urine Yeast (Budding) Occasional None Seen /hpf Urine Glucose Normal Normal mg/dL White Blood Count 8.9 4.4-10.8 10^3/uL Red Blood Count 4.55 4.0-5.20 10^6/uL Hemoglobin 14.2 12.2-16.2 g/dL Hematocrit 41.3 36.0-46.0 % Mean Corpuscular Volume 90.8 80.0-100.0 fL Mean Corpuscular Hemoglobin 31.2 28.0-32.0 pg Mean Corpuscular Hemoglobin Concent 34.4 32.0-36.0 g/dL Red Cell Distribution Width 14.0 11.8-14.3 % Platelet Count 225 140-450 10^3/uL Mean Platelet Volume 8.4 6.9-10.8 fL Neutrophils (%) (Auto) 65.2 37.0-80.0 % Lymphocytes (%) (Auto) 24.3 10.0-50.0 % Monocytes (%) (Auto) 8.0 0.0-12.0 % Eosinophils (%) (Auto) 2.1 0.0-7.0 % Basophils (%) (Auto) 0.4 0.0-2.0 % Neutrophils # (Auto) 5.8 1.6-8.6 10 ^3/uL Lymphocytes # (Auto) 2.1 0.4-5.4 10 ^3/uL Monocytes # (Auto) 0.7 0-1.3 10 ^3/uL Eosinophils # (Auto) 0.2 0-0.8 10 ^3/uL Basophils # (Auto) 0 0-0.2 10 ^3/uL Nucleated Red Blood Cells 0.0 % Sodium Level 142 136-145 mmol/L Potassium Level 3.5 3.5-5.1 mmol/L Chloride Level 111 H 98-107 mmol/L Carbon Dioxide Level 21 20-31 mmol/L Anion Gap 10 5-15 Blood Urea Nitrogen 19 9-23 mg/dL Creatinine 0.95 0.550-1.02 mg/dL Glomerular Filtration Rate Calc 62 >90 mL/min BUN/Creatinine Ratio 20.0 10.0-20.0 Serum Glucose 84 74-106 mg/dL Calcium Level 9.9 8.7-10.4 mg/dL SEPSIS Sepsis Screen Date sepsis recognized/suspect: Sep 16, 2025 Time Sepsis recognized/suspect: 729 Recent Procedure: No On Antibiotic Therapy: No Respiratory Rate >20: No Heart Rate >90: No Temp<36 C (96.8 F) or >38.3 C: No SBP <90 or MAP <65 mmHG: No New Acute Mental Status Change: Yes Is the patient on CPAP, BIPAP,: No Physician Orders Admit (09/16/25 13:08) Code Status (09/16/25 13:08) 2 Gm Sodium Diet (09/16/25 Lunch) Hydrocodone-Acet 5/325mg Tab ([place] /32 (09/16/25 13:15) Ondansetron Hcl (Zofran) (09/16/25 13:15) Docusate Sodium Capsule (Colace Capsule) (09/16/25 13:15) Complete Blood Count (09/17/25 04:00) Comprehensive Metabolic Panel (09/17/25 04:00) Condition: Serious (09/16/25 13:08) Acetaminophen Tablet (Tylenol Tablet) (09/16/25 13:15) Citalopram Tablet (Celexa Tablet) (09/17/25 10:00) Levothyroxine Tablet (Synthroid Tablet) (09/17/25 10:00) (Nf) Gabapentin (09/16/25 22:00) (Nf) Lisinopril (09/17/25 10:00) (Nf) Ropinirole Hydrochloride (Ropinirol (09/16/25 22:00) (Nf) Ramelteon (09/16/25 14:15) (Nf) Rosuvastatin Calcium (09/16/25 22:00) Vital Signs Date Time Temp Pulse Resp B/P (MAP) Pulse Ox O2 Delivery O2 Flow Rate FiO2 09/16/25 13:00 55 11 14/77 (56) 96 09/16/25 12:20 62 16 136/75 (95) 100 09/16/25 11:00 59 13 115/52 (73) 99 09/16/25 10:00 63 18 137/68 (91) 98 09/16/25 09:00 58 10 146/73 (97) 98 09/16/25 08:00 68 13 127/65 (85) 90 09/16/25 07:30 97.9 60 10 134/70 (91) 98 97.9 09/16/25 07:30 60 10 98 Room Air* 0 21 Laboratory Tests Test 09/16/25 04:15 White Blood Count 8.9 10^3/uL (4.4-10.8) Assessment/Plan Assessment/Plan Assessment: Altered mental status, Complicated UTI, Hypertension, Hypothyroidism, Neuropathy, Plan: Admit to Med-Surg, IV antibiotics, IV hydration, Urine culture, Chest X-ray, Consider neuro consult if symptoms persist, Consider brain MRI if symptoms persist, Home medications reconciled, Plan discussed with: Patient, Other ([id number]) My Orders Orders - LISA HUTCHINS Procedure Category Date Status Time Admit ADMIT 09/16/25 Transmitted 13:08 Code Status CODE 09/16/25 Transmitted 13:08 2 Gm Sodium Diet DIET 09/16/25 Transmitted Lunch Hydrocodone-Acet PHA 09/16/25 Logged 5/325mg Tab ([place] 13:15 Ondansetron Hcl PHA 09/16/25 Logged (Zofran) 13:15 Docusate Sodium PHA 09/16/25 Logged Capsule (Colace 13:15 Complete Blood Count LAB 09/17/25 Verified 04:00 Comprehensive LAB 09/17/25 Verified Metabolic Panel 04:00 Condition: Serious [place] 09/16/25 In Process 13:08 Acetaminophen Tablet PHA 09/16/25 Logged (Tylenol Tablet) 13:15 Citalopram Tablet PHA 09/17/25 Transmitted (Celexa Tablet) 10:00 Levothyroxine Tablet PHA 09/17/25 Transmitted (Synthroid Tablet) 10:00 (Nf) Gabapentin PHA 09/16/25 Transmitted 22:00 (Nf) Lisinopril PHA 09/17/25 Transmitted 10:00 (Nf) Ropinirole PHA 09/16/25 Transmitted Hydrochloride 22:00 (Nf) Ramelteon PHA 09/16/25 Transmitted 14:15 (Nf) Rosuvastatin PHA 09/16/25 Transmitted Calcium 22:00 Date of Service: Sep 16, 2025 Billing Provider: LISA HUTCHINS Common Visit Codes: [id number] INP/OBS CARE (MOD) LISA HUTCHINS Sep 16, 2025 14:30
--- NOTE | 2025-09-16 14:54 | DVH ---
EXAM: XY CHEST PORTABLE HISTORY: SOB TECHNIQUE: 1 view of the chest COMPARISON: XY CHEST TWO VIEWS ROUTINE on DOS: 11/13/24 FINDINGS/IMPRESSION: LUNGS: No pleural effusion, consolidation, or pneumothorax. Question appearance of peripheral interstitial edema. MEDIASTINUM: Unremarkable. Left anterior chest loop recorder BONES: No acute osseous abnormality. OTHER: None.
[2025-09-16 19:25] VITALS: PULSE 88; RESP 12; O2SAT 98
[2025-09-16 22:00] VITALS: BP 121/71; PULSE 58; RESP 18; TEMP 97.9; O2SAT 99
[2025-09-16 22:59] VITALS: RESP 18; O2SAT 95
[2025-09-16] MEDS: ATORVASTATIN 20 MG TAB PO SCH (23:27)
[2025-09-16] MEDS: GABAPENTIN 400 MG CAP PO SCH (23:27)
[2025-09-16] MEDS: HYDROcodone-ACET 5/325MG TAB PO PRN (23:55)
[2025-09-17 05:00] VITALS: BP 130/77; PULSE 60; RESP 17; TEMP 98; O2SAT 98
[2025-09-17] MEDS: LEVOTHYROXINE SODIUM 100 MCG TAB PO SCH (06:06)
[2025-09-17 06:08] LABS: Hematocrit 42.9 % (36.0-46.0); Hemoglobin 15.2 g/dL (12.2-16.2); Mean Corpuscular Hemoglobin 32.0 pg (28.0-32.0); Mean Corpuscular Volume 90.5 fL (80.0-100.0); Nucleated Red Blood Cells % 0.2 %
[2025-09-17 06:27] LABS: Alanine Aminotransferase 34 U/L (7-40); Albumin 4.7 g/dL (3.2-4.8); Alkaline Phosphatase 69 U/L (46-116); Anion Gap 10 (5-15); BUN/Creatinine Ratio 18.3 (10.0-20.0); Blood Urea Nitrogen 17 mg/dL (9-23); Calcium 10.0 mg/dL (8.7-10.4); Carbon Dioxide 22 mmol/L (20-31); Glucose 86 mg/dL (74-106); Potassium 3.8 mmol/L (3.5-5.1); Sodium 144 mmol/L (136-145); Total Protein 7.3 g/dL (5.7-8.2)
[2025-09-17 06:28] LABS: Bilirubin, Total 0.5 mg/dL (0.2-1.0)
[2025-09-17 06:34] LABS: Chloride 112 mmol/L (98-107)
[2025-09-17 08:00] VITALS: PULSE 61; RESP 18; O2SAT 99
[2025-09-17 09:16] VITALS: BP 141/75; PULSE 57; RESP 20; TEMP 97.7; O2SAT 98
[2025-09-17] MEDS: LISINOPRIL 20 MG TAB PO SCH (09:23)
[2025-09-17] MEDS: CITALOPRAM HYDROBR 20 MG TAB PO SCH (09:23)
[2025-09-17 13:00] VITALS: BP_SYST 141; BP_SYST 147; BP_DIAS 75; BP_DIAS 78; PULSE 57; PULSE 61; RESP 18; RESP 20; TEMP 97.7; TEMP 98; O2SAT 98; O2SAT 99
[2025-09-17] MEDS ORDERED: RAMELTEON 8 MG TABLET PO PRN (13:15)
--- NOTE | 2025-09-17 15:59 | DVHPN2 ---
Subjective Overnight events noted. Patient told me that she was here because of diarrhea worsening for last few days, also as per her son she was not making any sense. Changes from previous H/P or p: No Changes Eyes: No Pain, No Vision change, No Conjunctivae inflammation, No Eyelid inflammation, No Other, No Redness ENT: No Ear pain, No Ear discharge, No Nose pain, No Nose discharge, No Nose congestion, No Mouth pain, No Mouth swelling, No Throat pain, No Throat swelling, No Other Cardiovascular: No Chest Pain, No Palpitations, No Orthopnea, No Paroxysmal Noc. Dyspnea, No Edema, No Lt Headedness, No Other Respiratory: No Cough, No Dry, No Shortness of breath, No SOB with excertion, No Wheezing, No Hemoptysis, No Pleuritic Pain, No Sputum, No Other Gastrointestinal: No Nausea, No Vomiting, No Abdominal Pain, No Diarrhea, No Constipation, No Melena, No Hematochezia, No Other Genitourinary: No Dysuria, No Frequency, No Incontinence, No Hematuria, No Retention, No Other Musculoskeletal: No other, No neck pain, No shoulder pain, No arm pain, No back pain, No hand pain, No leg pain, No foot pain Skin: No Rash, No Lesions, No Jaundice, No Bruising, No Other Objective Vitals Vital Signs Date Time Temp Pulse Resp B/P (MAP) Pulse Ox O2 Delivery O2 Flow Rate FiO2 09/17/25 13:00 97.7 57 20 141/75 (97) 98 97.7 09/17/25 08:00 Room Air* 0 21 Intake/Output Intake and Output 09/17/25 07:00 Intake Total 200 ml Balance 200 ml Intake Oral 200 ml Exam HEENT pupils are reactive Neck is supple CV is S1-S2 regular rate and rhythm Respiratory bilateral carmencita -extremities no pedal edema 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 motor deficit Medications Current Medications Medications Dose Ordered Sig/Adrian Route Start Time Stop Time Status Last Admin Dose Admin Acetaminophen/ Hydrocodone Bitart 1 tab Q4HP PRN PO 09/16/25 13:15 09/16/25 23:55 1 TAB Ondansetron HCl 4 mg Q4HP PRN IV 09/16/25 13:15 Docusate Sodium 100 mg BIDPRN PRN PO 09/16/25 13:15 Acetaminophen 650 mg Q6HP PRN PO 09/16/25 13:15 Citalopram Hydrobromide 20 mg DAILY PO 09/17/25 10:00 09/17/25 09:23 20 MG Levothyroxine Sodium 100 mcg QAM PO 09/17/25 07:00 09/17/25 06:06 100 MCG Gabapentin 800 mg TID PO 09/16/25 22:00 09/17/25 13:23 800 MG Lisinopril 40 mg DAILY PO 09/17/25 10:00 09/17/25 09:23 40 MG Atorvastatin Calcium 20 mg HS PO 09/16/25 22:00 09/16/25 23:27 20 MG Ceftriaxone Sodium 50 ml @ 100 mls/hr DAILY@09 IV 09/16/25 17:35 09/17/25 09:23 100 MLS/HR Patient Own Medication 1 tab HS PO 09/17/25 22:00 Patient Own Medication 1 tab QHSP PRN PO 09/17/25 13:15 Laboratory Results Laboratory Tests 09/17/25 05:28 Chemistry Test 09/17/25 05:28 Albumin 4.7 g/dL (3.2-4.8) Calcium Level 10.0 mg/dL (8.7-10.4) Total Protein 7.3 g/dL (5.7-8.2) LFT Test 09/17/25 05:28 Alanine Aminotransferase (ALT) 34 U/L (7-40) Alkaline Phosphatase 69 U/L (46-116) Aspartate Amino Transferase (AST) 61 U/L (13-40) H Total Bilirubin 0.5 mg/dL (0.2-1.0) Urinalysis Test 09/16/25 10:48 Urine Color Yellow (Yellow) Urine Clarity Clear (Clear) Urine pH 7.5 (5.0-9.0) Urine Specific [place] 1.042 (1.001-1.035) Urine Protein Negative (Negative) Urine Ketones Negative (Negative) Urine Blood Negative /uL (Negative) Urine Nitrite Negative (Negative) Urine Bilirubin Negative (Negative) Urine Urobilinogen Normal mg/dL (Negative) Urine Leukocyte Esterase 2+ /uL (Negative) Urine RBC 3 /hpf (0 - 4) Urine Microscopic WBC 12 /HPF (0-5) H Urine Squamous Epithelial Cells Few /hpf (<5) Urine Bacteria None seen /hpf (None Seen) Urine Yeast (Budding) Occasional /hpf (None Urine Glucose Normal mg/dL (Normal) Microbiology Microbiology Date/Time Source Procedure Growth Status 09/16/25 10:48 Voided Urine Urine Culture - Preliminary No growth Resulted Assessment/Plan Assessment/Plan 74-year-old female with a known history of hypertension, dyslipidemia presented to the hospital with altered mental status found to have 1. Acute encephalopathy 2. UTI 3. Hypertension Four dyslipidemia Five hypothyroidism -follow up urine culture, blood cultures, CT head noncontrast -check stool bacterial culture and stool for C diff Plan discussed with: Patient My Orders Orders - DARCI JAVED MD Procedure Category Date Status Time Stool Bacterial BERENICE 09/17/25 Logged Culture 14:[address] 09/17/25 Transmitted 15:56 Date of Service: Sep 17, 2025 Billing Provider: DARCI JAVED MD Common Visit Codes: [id number] INP/OBS CARE(HIGH) DARCI JAVED MD Sep 17, 2025 15:59
[2025-09-17 16:49] VITALS: BP 102/75; PULSE 54; RESP 18; TEMP 98.3; O2SAT 98
--- NOTE | 2025-09-17 16:53 | DVH ---
EXAM: CT HEAD WITHOUT CONTRAST INDICATION: Altered mental status COMPARISON: None TECHNIQUE: CT of the head without intravenous contrast. Radiation Dose Information: CT Dose: CTDI volume is 57.58 mGy. Dose-length product is 1019.59 mGy*cm The dose indicators for CT are the volume Computed Tomography (CT) Dose Index (CTDIvol) and the Dose Length Product (DLP), and are measured in units of mGy and mGy-cm, respectively. These indicators are not patient dose, but values generated from the CT scanner acquisition factors. The report includes radiation exposure data for exposures received during this examination. Findings: Scattered hypoattenuation in the periventricular and subcortical white matter, suggestive of chronic microvascular disease. The ventricles and sulci are mildly enlarged, compatible with generalized parenchymal volume loss. There is no mass- effect, hemorrhage, midline shift, or abnormal extra-axial fluid collection visible. No calvarial fracture. Essentially clear visualized paranasal sinuses. Mastoid air cells are clear. IMPRESSION: No acute intracranial hemorrhage or mass effect.
[2025-09-17 21:00] VITALS: BP 118/74; PULSE 52; RESP 17; TEMP 98.1; O2SAT 97
[2025-09-17] MEDS: ROPINIROLE HCL 1 MG TABLET PO SCH (22:08)
[2025-09-18] VITALS (7 sets, daily range): BP systolic 105–147; BP diastolic 57–78; PULSE 47–72; RESP 16–18; TEMP 97.7–99.2; O2SAT 96–99
--- NOTE | 2025-09-18 15:49 | DVHPN2 ---
Subjective Overnight events noted. Patient told me that she was here because of diarrhea worsening for last few days, also as per her son she was not making any sense. CT head reviewed which shows no evidence of any acute infarct. Changes from previous H/P or p: No Changes Eyes: No Pain, No Vision change, No Conjunctivae inflammation, No Eyelid inflammation, No Other, No Redness ENT: No Ear pain, No Ear discharge, No Nose pain, No Nose discharge, No Nose congestion, No Mouth pain, No Mouth swelling, No Throat pain, No Throat swelling, No Other Cardiovascular: No Chest Pain, No Palpitations, No Orthopnea, No Paroxysmal Noc. Dyspnea, No Edema, No Lt Headedness, No Other Respiratory: No Cough, No Dry, No Shortness of breath, No SOB with excertion, No Wheezing, No Hemoptysis, No Pleuritic Pain, No Sputum, No Other Gastrointestinal: No Nausea, No Vomiting, No Abdominal Pain, No Diarrhea, No Constipation, No Melena, No Hematochezia, No Other Genitourinary: No Dysuria, No Frequency, No Incontinence, No Hematuria, No Retention, No Other Musculoskeletal: No other, No neck pain, No shoulder pain, No arm pain, No back pain, No hand pain, No leg pain, No foot pain Skin: No Rash, No Lesions, No Jaundice, No Bruising, No Other Objective Vitals Vital Signs Date Time Temp Pulse Resp B/P (MAP) Pulse Ox O2 Delivery O2 Flow Rate FiO2 09/18/25 13:00 98.1 52 16 120/63 (82) 96 98.1 09/18/25 08:00 Room Air* 0 21 Intake/Output Intake and Output 09/18/25 07:00 Intake Total 1200 ml Balance 1200 ml Intake Oral 1150 ml IV Total 50 ml # Voids 4 # Bowel Movements 2 Exam HEENT pupils are reactive Neck is supple CV is S1-S2 regular rate and rhythm Respiratory bilateral carmencita -extremities no pedal edema ICU TECH no motor deficit Medications Current Medications Medications Dose Ordered Sig/Adrian Route Start Time Stop Time Status Last Admin Dose Admin Acetaminophen/ Hydrocodone Bitart 1 tab Q4HP PRN PO 09/16/25 13:15 09/17/25 22:06 1 TAB Ondansetron HCl 4 mg Q4HP PRN IV 09/16/25 13:15 Docusate Sodium 100 mg BIDPRN PRN PO 09/16/25 13:15 Acetaminophen 650 mg Q6HP PRN PO 09/16/25 13:15 Citalopram Hydrobromide 20 mg DAILY PO 09/17/25 10:00 09/18/25 10:01 20 MG Levothyroxine Sodium 100 mcg QAM PO 09/17/25 07:00 09/18/25 06:24 100 MCG Gabapentin 800 mg TID PO 09/16/25 22:00 09/18/25 14:37 800 MG Lisinopril 40 mg DAILY PO 09/17/25 10:00 09/18/25 10:01 40 MG Atorvastatin Calcium 20 mg HS PO 09/16/25 22:00 09/17/25 22:06 20 MG Ceftriaxone Sodium 50 ml @ 100 mls/hr DAILY@09 IV 09/16/25 17:35 09/18/25 10:02 100 MLS/HR Patient Own Medication 1 tab HS PO 09/17/25 22:00 09/17/25 22:08 1 TAB Patient Own Medication 1 tab QHSP PRN PO 09/17/25 13:15 Laboratory Results Laboratory Tests 09/17/25 05:28 Urinalysis Test 09/16/25 10:48 Urine Color Yellow (Yellow) Urine Clarity Clear (Clear) Urine pH 7.5 (5.0-9.0) Urine Specific [place] 1.042 (1.001-1.035) Urine Protein Negative (Negative) Urine Ketones Negative (Negative) Urine Blood Negative /uL (Negative) Urine Nitrite Negative (Negative) Urine Bilirubin Negative (Negative) Urine Urobilinogen Normal mg/dL (Negative) Urine Leukocyte Esterase 2+ /uL (Negative) Urine RBC 3 /hpf (0 - 4) Urine Microscopic WBC 12 /HPF (0-5) H Urine Squamous Epithelial Cells Few /hpf (<5) Urine Bacteria None seen /hpf (None Seen) Urine Yeast (Budding) Occasional /hpf (None Urine Glucose Normal mg/dL (Normal) Microbiology Microbiology Date/Time Source Procedure Growth Status 09/17/25 18:50 Stool Stool Culture - Preliminary Resulted 09/17/25 18:50 Stool Shiga Toxin I & II Pending Resulted 09/16/25 10:48 Voided Urine Urine Culture - Preliminary No growth Resulted Assessment/Plan Assessment/Plan 74-year-old female with a known history of hypertension, dyslipidemia presented to the hospital with altered mental status found to have 1. Acute encephalopathy 2. UTI 3. Hypertension 4. hypothyroidism 5 diarrhea rule out C diff -follow up urine culture, blood cultures, CT head noncontrast -check stool bacterial culture and stool for C diff Plan discussed with: Patient My Orders Orders - DARCI JAVED MD Procedure Category Date Status Time Head Without Contrast CT 09/17/25 Resulted 15:56 Cleanse Wound With EVERT[place] 09/17/25 In Process Wound Clean 17:55 Date of Service: Sep 18, 2025 Billing Provider: DARCI JAVED MD Common Visit Codes: [id number] INP/OBS CARE(MOD) DARCI JAVED MD Sep 18, 2025 15:49
[2025-09-18] MEDS: ROPINIROLE HCL 1 MG TABLET PO SCH (21:20)
[2025-09-19] VITALS (7 sets, daily range): BP systolic 106–133; BP diastolic 56–76; PULSE 44–64; RESP 16–20; TEMP 96.7–98.1; O2SAT 94–100
--- NOTE | 2025-09-19 15:52 | DVHPN2 ---
Subjective Patient was stated diarrhea is getting better. Requesting has been added. I ordered C diff but has been three days so hospital will not check it. Changes from previous H/P or p: No Changes Eyes: No Pain, No Vision change, No Conjunctivae inflammation, No Eyelid inflammation, No Other, No Redness ENT: No Ear pain, No Ear discharge, No Nose pain, No Nose discharge, No Nose congestion, No Mouth pain, No Mouth swelling, No Throat pain, No Throat swelling, No Other Cardiovascular: No Chest Pain, No Palpitations, No Orthopnea, No Paroxysmal Noc. Dyspnea, No Edema, No Lt Headedness, No Other Respiratory: No Cough, No Dry, No Shortness of breath, No SOB with excertion, No Wheezing, No Hemoptysis, No Pleuritic Pain, No Sputum, No Other Gastrointestinal: No Nausea, No Vomiting, No Abdominal Pain, No Diarrhea, No Constipation, No Melena, No Hematochezia, No Other Genitourinary: No Dysuria, No Frequency, No Incontinence, No Hematuria, No Retention, No Other Musculoskeletal: No other, No neck pain, No shoulder pain, No arm pain, No back pain, No hand pain, No leg pain, No foot pain Skin: No Rash, No Lesions, No Jaundice, No Bruising, No Other Objective Vitals Vital Signs Date Time Temp Pulse Resp B/P (MAP) Pulse Ox O2 Delivery O2 Flow Rate FiO2 09/19/25 12:41 96.7 53 18 106/63 (77) 94 96.7 09/19/25 08:15 Room Air* 0 21 Intake/Output Intake and Output 09/19/25 07:00 Intake Total 1850 ml Balance 1850 ml Intake Oral 1850 ml # Voids 6 # Bowel Movements 5 Exam HEENT pupils are reactive Neck is supple CV is S1-S2 regular rate and rhythm Respiratory bilateral carmencita -extremities no pedal edema [employer] no motor deficit Medications Current Medications Medications Dose Ordered Sig/Adrian Route Start Time Stop Time Status Last Admin Dose Admin Acetaminophen/ Hydrocodone Bitart 1 tab Q4HP PRN PO 09/16/25 13:15 09/19/25 04:34 1 TAB Ondansetron HCl 4 mg Q4HP PRN IV 09/16/25 13:15 Docusate Sodium 100 mg BIDPRN PRN PO 09/16/25 13:15 Acetaminophen 650 mg Q6HP PRN PO 09/16/25 13:15 Citalopram Hydrobromide 20 mg DAILY PO 09/17/25 10:00 09/19/25 10:16 20 MG Levothyroxine Sodium 100 mcg QAM PO 09/17/25 07:00 09/19/25 06:11 100 MCG Gabapentin 800 mg TID PO 09/16/25 22:00 09/19/25 14:20 800 MG Lisinopril 40 mg DAILY PO 09/17/25 10:00 09/19/25 10:16 40 MG Atorvastatin Calcium 20 mg HS PO 09/16/25 22:00 09/18/25 21:19 20 MG Ceftriaxone Sodium 50 ml @ 100 mls/hr DAILY@09 IV 09/16/25 17:35 09/19/25 10:15 100 MLS/HR Patient Own Medication 1 tab QHSP PRN PO 09/17/25 13:15 Patient Own Medication 1 tab HS PO 09/18/25 22:00 09/18/25 21:20 1 TAB Cholestyramine Resin 4 gm Q12HR@0600,1800 GT 09/19/25 18:00 Laboratory Results Laboratory Tests 09/17/25 05:28 Urinalysis Test 09/16/25 10:48 Urine Color Yellow (Yellow) Urine Clarity Clear (Clear) Urine pH 7.5 (5.0-9.0) Urine Specific [place] 1.042 (1.001-1.035) Urine Protein Negative (Negative) Urine Ketones Negative (Negative) Urine Blood Negative /uL (Negative) Urine Nitrite Negative (Negative) Urine Bilirubin Negative (Negative) Urine Urobilinogen Normal mg/dL (Negative) Urine Leukocyte Esterase 2+ /uL (Negative) Urine RBC 3 /hpf (0 - 4) Urine Microscopic WBC 12 /HPF (0-5) H Urine Squamous Epithelial Cells Few /hpf (<5) Urine Bacteria None seen /hpf (None Seen) Urine Yeast (Budding) Occasional /hpf (None Urine Glucose Normal mg/dL (Normal) Microbiology Microbiology Date/Time Source Procedure Growth Status 09/17/25 18:50 Stool Stool Culture - Preliminary Resulted 09/17/25 18:50 Stool Shiga Toxin I & II - Final Resulted 09/16/25 10:48 Voided Urine Urine Culture - Final Complete Assessment/Plan Assessment/Plan 74-year-old female with a known history of hypertension, dyslipidemia presented to the hospital with altered mental status found to have 1. Acute encephalopathy, currently at baseline 2. UTI 3. Hypertension 4. hypothyroidism 5 diarrhea improving -follow up urine culture, blood cultures, CT head noncontrast --no checking of stool for C diff because of 72 hours, follow up stool bacterial culture. Plan discussed with: Patient My Orders Orders - DARCI JAVED MD Procedure Category Date Status Time Cholestyramine Powder PHA 09/19/25 In Process (Questran Powder) 18:00 Date of Service: Sep 19, 2025 Billing Provider: DARCI JAVED MD Common Visit Codes: [id number] INP/OBS CARE(HIGH) DARCI JAVED MD Sep 19, 2025 15:52
[2025-09-20] VITALS (7 sets, daily range): BP systolic 108–126; BP diastolic 60–73; PULSE 46–77; RESP 16–18; TEMP 36.4; O2SAT 96–99
[2025-09-20] MEDS: CHOLESTYRAMINE 4 GM POWDER GT SCH (00:05)
[2025-09-20] MEDS ORDERED: GABA800T97 PO (14:43)
--- NOTE | 2025-09-20 14:47 | DVHDS2 ---
Discharge Summary Date of Admission Sep 16, 2025 at 13:08 Date of Discharge: Sep 20, 2025 Labs/Diagnostic Data: Laboratory Results Test 09/17/25 05:28 09/16/25 10:48 White Blood Count 8.2 10^3/uL (4.4-10.8) Red Blood Count 4.74 10^6/uL (4.0-5.20) Hemoglobin 15.2 g/dL (12.2-16.2) Hematocrit 42.9 % (36.0-46.0) Mean Corpuscular Volume 90.5 fL (80.0-100.0) Mean Corpuscular Hemoglobin 32.0 pg (28.0-32.0) Mean Corpuscular Hemoglobin Concent 35.3 g/dL (32.0-36.0) Red Cell Distribution Width 14.1 % (11.8-14.3) Platelet Count 237 10^3/uL (140-450) Mean Platelet Volume 8.3 fL (6.9-10.8) Neutrophils (%) (Auto) 62.3 % (37.0-80.0) Lymphocytes (%) (Auto) 25.7 % (10.0-50.0) Monocytes (%) (Auto) 8.2 % (0.0-12.0) Eosinophils (%) (Auto) 3.1 % (0.0-7.0) Basophils (%) (Auto) 0.7 % (0.0-2.0) Neutrophils # (Auto) 5.1 10 ^3/uL (1.6-8.6) Lymphocytes # (Auto) 2.1 10 ^3/uL (0.4-5.4) Monocytes # (Auto) 0.7 10 ^3/uL (0-1.3) Eosinophils # (Auto) 0.3 10 ^3/uL (0-0.8) Basophils # (Auto) 0.1 10 ^3/uL (0-0.2) Nucleated Red Blood Cells 0.2 % Sodium Level 144 mmol/L (136-145) Potassium Level 3.8 mmol/L (3.5-5.1) Chloride Level 112 mmol/L (98-107) Carbon Dioxide Level 22 mmol/L (20-31) Anion Gap 10 (5-15) Blood Urea Nitrogen 17 mg/dL (9-23) Creatinine 0.93 mg/dL (0.550-1.02) Glomerular Filtration Rate Calc 64 mL/min (>90) BUN/Creatinine Ratio 18.3 (10.0-20.0) Serum Glucose 86 mg/dL (74-106) Calcium Level 10.0 mg/dL (8.7-10.4) Total Bilirubin 0.5 mg/dL (0.2-1.0) Aspartate Amino Transferase (AST) 61 U/L (13-40) Alanine Aminotransferase (ALT) 34 U/L (7-40) Alkaline Phosphatase 69 U/L (46-116) Total Protein 7.3 g/dL (5.7-8.2) Albumin 4.7 g/dL (3.2-4.8) Urine Color Yellow (Yellow) Urine Clarity Clear (Clear) Urine pH 7.5 (5.0-9.0) Urine Specific [place] 1.042 (1.001-1.035) Urine Protein Negative (Negative) Urine Ketones Negative (Negative) Urine Blood Negative /uL (Negative) Urine Nitrite Negative (Negative) Urine Bilirubin Negative (Negative) Urine Urobilinogen Normal mg/dL (Negative) Urine Leukocyte Esterase 2+ /uL (Negative) Urine RBC 3 /hpf (0 - 4) Urine Microscopic WBC 12 /HPF (0-5) Urine Squamous Epithelial Cells Few /hpf (<5) Urine Bacteria None seen /hpf (None Seen) Urine Yeast (Budding) Occasional /hpf (None Urine Glucose Normal mg/dL (Normal) Other Laboratory Tests 09/17/25 05:28 Brief Hx & Hospital Course: 74-year-old female with a known history of hypertension, dyslipidemia presented to the hospital with altered mental status found to have acute encephalopathy suspected septic encephalopathy secondary to urinary tract infection. Patient's urinary tract infection was treated with the IV antibiotics patient also complaining of diarrhea which is currently resolved. Stool for C diff was ordered but it was 72 hours after the admission so it was canceled. Anyway patient denies any abdominal pain diarrhea and requesting to go home. Patient also requested gabapentin for home. That is her home medications. Patient is being discharged under stable condition. Condition at Discharge: Stable Final Diagnosis/Problems List 74-year-old female with a known history of hypertension, dyslipidemia presented to the hospital with altered mental status found to have 1. Acute encephalopathy, currently at baseline 2. UTI 3. Hypertension 4. hypothyroidism Discharge Disposition: Home SNF Discharge Will this Physician continue t: No Discharge Instruct/Medications Diet: Cardiac 2g Na,low cholest Activity: No Restrictions, As Tolerated Follow Up/Referral: Please follow up with the PCP in 1-2 weeks Medications: Gabapentin as prescribed, resume home medications. Continued Medications: Citalopram Hydrobromide (Citalopram Hydrobromide) 20 Mg Tab 1 TAB PO DAILY Gabapentin (Gabapentin) 800 Mg Tab 1 TAB PO TID for 30 Days, #90 TAB (This prescription has been renewed) Levothyroxine Sodium (Levothyroxine Sodium) 100 Mcg Tab 1 TAB PO DAILY Lisinopril (Lisinopril) 40 Mg Tab 1 TAB PO DAILY Ramelteon (Ramelteon) 8 Mg Tab 1 TAB PO QHSP PRN Ropinirole Hydrochloride (Ropinirole Hcl) 1 Mg Tab 1 TAB PO HS Rosuvastatin Calcium (Rosuvastatin Calcium) 10 Mg Tab 1 TAB PO HS Scheduled Citalopram Hydrobromide (Citalopram Hydrobromide), 1 TAB PO DAILY, (Reported) Gabapentin (Gabapentin), 1 TAB PO TID Levothyroxine Sodium (Levothyroxine Sodium), 1 TAB PO DAILY, (Reported) Lisinopril (Lisinopril), 1 TAB PO DAILY, (Reported) Ropinirole Hydrochloride (Ropinirole Hcl), 1 TAB PO HS, (Reported) Rosuvastatin Calcium (Rosuvastatin Calcium), 1 TAB PO HS, (Reported) Scheduled PRN Ramelteon (Ramelteon), 1 TAB PO QHSP PRN, (Reported) Discharge Statement: "Patient was advised to return to the ER or call 911 if any headaches, dizziness, shortness of breath, chest pain, abdominal pain, bleeding, fevers, or worsening of medical condition. Patient was counseled about treatment plan, medications, possible side effects, patientverbalized understanding. All questions were answered to the best of my ability. This discharge took greater then 30 minutes in planning, reviewing documentation, counseling the patient, and discussing with other team members." ASSESSMENT ASSESSMENT Assessment 74-year-old female with a known history of hypertension, dyslipidemia presented to the hospital with altered mental status found to have 1. Acute encephalopathy, currently at baseline 2. UTI 3. Hypertension 4. hypothyroidism Date of Service: Sep 20, 2025 Billing Provider: DARCI JAVED MD Common Visit Codes: [id number] DISCH DAY >30min DARCI JAVED MD Sep 20, 2025 14:47
== END 2025-09-20 16:32 | disposition home or self-care (01) | DRG 689 ==
LOC: ER 03:39 → EDUNIT# 03:39 → EDBD 03:39 → OVERFLOW 13:08 → WEST WING 21:57
PROVIDERS: ADMIT Internal Medicine; ATTEND Internal Medicine
DX: N30.00 Acute cystitis without hematuria (principal); G93.41 Metabolic encephalopathy; E03.9 Hypothyroidism, unspecified; I10 Essential (primary) hypertension; G62.9 Polyneuropathy, unspecified; E78.5 Hyperlipidemia, unspecified; Z63.4 Disappearance and death of family member
CPT/HCPCS: 36415; 70450; 71045; 80048; 80053; 81001; 85025; 87045; 87086; 87427; 93005; 96365; G0378

== ENCOUNTER 2025-10-01 07:13 | Outpatient (CLI) | payer OTHER ==
[~2025-10-01 07:13] MED LIST: CITA-77 PO; GABA800T97 PO; LEVO100T8 PO; LISI40TA16 PO; RAME8TAB26 PO; ROPI1TAB78 PO; ROSU10TA64 PO
[2025-10-02 13:10] LABS: Chloride 103 mmol/L (98-107); Potassium 4.3 mmol/L (3.5-5.1); Sodium 139 mmol/L (136-145)
[2025-10-02 13:11] LABS: Anion Gap 10 (5-15); Calcium 10.3 mg/dL (8.7-10.4); Carbon Dioxide 26 mmol/L (20-31)
[2025-10-02 13:16] LABS: BUN/Creatinine Ratio 19.8 (10.0-20.0); Blood Urea Nitrogen 22 mg/dL (9-23); Glucose 85 mg/dL (74-106)
[2025-10-02 13:17] LABS: Microalb/Creat Ratio, Urine 5.0
== END 2025-10-01 17:00 | disposition home or self-care (01) ==
LOC: LAB 07:13
PROVIDERS: ATTEND Internal Medicine Endocrinology, Diabetes & Metabolism
DX: E03.9 Hypothyroidism, unspecified (principal); E11.9 Type 2 diabetes mellitus without complications; E66.3 Overweight; E24.9 Cushing's syndrome, unspecified; R13.19 Other dysphagia; R68.89 Other general symptoms and signs
CPT/HCPCS: 36415; 80048; 82024; 82043; 82533; 82570; 84439; 84443

== ENCOUNTER 2025-10-16 13:48 | Emergency (ER) | payer OTHER ==
[~2025-10-16] VITALS: Ht 160 cm; Wt 79.6 kg
--- NOTE | 2025-10-16 14:13 | ED.PDOC ---
Musculoskeletal HPI Comments 74 y/o F, with PMHx of HTN, UTI's, HLD, and thyroid disease presents to the ED for CC of right extremity swelling. Patient sates, she has been experiencing right-leg pain with associated swelling onset, yesterday (10/15/25). Patient denies any trauma, injury, fall, numbness, or tingling. No other symptoms or modifying factors are present at this time. Chief Complaint: Lower Extremity Time Seen by MD: 14:00 Reviewed Notes: Nurses Notes, Medications, Allergies Allergies: Coded Allergies: Iodine (Verified Allergy, Unknown, 10/16/25) Home Meds Active Scripts Gabapentin (Gabapentin) 800 Mg Tab, 1 TAB PO TID for 30 Days, #90 TAB Prov:DARCI JAVED MD 09/20/25 Reported Medications Ropinirole Hydrochloride (Ropinirole Hcl) 1 Mg Tab, 1 TAB PO HS 09/16/25 Citalopram Hydrobromide (Citalopram Hydrobromide) 20 Mg Tab, 1 TAB PO DAILY 09/16/25 Rosuvastatin Calcium (Rosuvastatin Calcium) 10 Mg Tab, 1 TAB PO HS 09/16/25 Lisinopril (Lisinopril) 40 Mg Tab, 1 TAB PO DAILY 09/16/25 Levothyroxine Sodium (Levothyroxine Sodium) 100 Mcg Tab, 1 TAB PO DAILY 09/16/25 Ramelteon (Ramelteon) 8 Mg Tab, 1 TAB PO QHSP PRN 09/16/25 Information Source: Patient Mode of Arrival: Ambulatory Location: Right Extremity Location: Leg Timing: Days Prehospital treatment: None Severity: Moderate Able to Move Extremity: Yes Bear Weight: Fully Pain: Moderate Mechanism: Spontaneous Circumstances: Spontaneous Onset of Symptoms: Spontaneous Symptoms: Swelling, Pain DVT Risk Factors: NONE Last Tetanus: Unknown Associated signs and symptoms: Leg pain Past Medical History PAST MEDICAL HISTORY: High Lipids, HTN, Thyroid, UTI'S Surgical History: Appendectomy, Tonsillectomy 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 Hx Social History Smoker: Non-Smoker Alcohol: Denies ETOH Use Drugs: Denies Drug Use Lives In: Home Constitutional: denies: chills, diaphoresis, fatigue, fever, malaise, sweats, weakness, others EENTM: denies: blurred vision, double vision, ear bleeding, ear discharge, ear drainage, ear pain, ear ringing, eye pain, eye redness, hearing loss, mouth pain, mouth swelling, nasal discharge, nose bleeding, nose congestion, nose pain, photophobia, tearing, throat pain, throat swelling, voice changes, others Respiratory: denies: cough, hemoptysis, orthopnea, SOB at rest, shortness of breath, SOB with excertion, stridor, wheezing, others Cardiovascular: denies: chest pain, dizzy spells, diaphoresis, Dyspnea on exe rtion, edema, irregular heart beat, left arm pain, lightheadedness, palpitations, PND, syncope, others Gastrointestinal: denies: abdomen distended, abdominal pain, blood streaked bowels, constipated, diarrhea, dysphagia, difficulty swallowing, hematemesis, melena, nausea, poor appetite, poor fluid intake, rectal bleeding, rectal pain, vomiting, others Genitourinary: denies: abnormal vagina bleeding, burning, dyspareunia, dysuria, flank pain, frequency, hematuria, incontinence, pain, , vagina discharge, urgency, others Neurological: denies: dizziness, fainting, headache, left sided numbness, left sided weakness, numbness, paresthesia, pre-existing deficit, right sided numbness, right sided weakness, seizure, speech problems, tingling, tremors, weakness, others Musculoskeletal: reports: others (RIGHT LEG PAIN); denies: back pain, gout, joint pain, joint swelling, muscle pain, muscle stiffness, neck pain Integumetry: denies: bruises, change in color, change in hair/nails, dryness, laceration, lesions, lumps, rash, wounds, others Allergic/Immunocompromised: denies: Difficulty Healing, Frequent Infections, Hives, Itching, others Hematologic/Lymphatic: denies: anemia, blood clots, easy bleeding, easy bruising, swollen glands, others Endocrine: denies: excessive hunger, excessive sweating, excessive thirst, excessive urination, flushing, intolerance to cold, intolerance to heat, unexplained weight gain, unexplained weight loss, others Psychiatric: denies: anxiety, bipolar disorder, depression, hopeless, panic disorder, schizophrenia, sleepless, suicidal, others All Other Systems: Reviewed and Negative Physical Exam General Appearance: No Apparent Distress HEENT: Normal ENT Inspection, Pharynx Normal, TMs Normal Neck: Full Range of Motion, Non-Tender, Normal, Normal Inspection Respiratory: Chest Non-Tender, Lungs Clear, No Accessory Muscle Use, No Respiratory Distress, Normal Breath Sounds Cardiovascular: No Edema, No JVD, No Murmur, No Gallop, Normal Peripheral Pulses, Regular Rate/Rhythm Breast Exam: Deferred Gastrointestinal: No Organomegaly, Non Tender, No Pulsatile Mass, Normal Bowel Sounds, Soft Genitalia: Deferred Pelvic: Deferred Rectal: Deferred Extremities: No calf tenderness, Normal capillary refill, No pedal edema, Swelling (Swelling to the right lower extremity) Musculoskeletal : Apperance: Normal Neurologic: Alert, jacket changer II-XII nml as Tested, No Motor Deficits, Normal Affect, Normal Mood, No Sensory Deficits Cerebellar Function: Normal Reflexes: Normal Skin: Dry, Normal Color, Warm Lymphatic: No Adenopathy Was a procedure done? Was a procedure done?: No Differential Diagnosis EXT Differential Diagnosis: Deep Vein Thrombosis, Other (PAD) X-Ray, Labs, Meds, VS Vital Signs Date Time Temp Pulse Resp B/P (MAP) Pulse Ox O2 Delivery O2 Flow Rate FiO2 10/16/25 13:51 97.5 65 18 142/69 97 97.5 RT Lower DVT IMPRESSION: No right femoropopliteal venous thrombosis. The patient is being discharged The patient will follow up with the primary care doctor The patient will return to the emergency department's condition worsens Images Reviewed?: Images reviewed and evaluated by me Time of 1ST Reevaluation: 14:30 Reevaluation 1ST: Unchanged Patient Education/Counseling: Diagnosis, Treatment, Prognosis, Need For Follow Up Family Education/Counseling: No Family Present Departure 1 Departure Time of Disposition: 15:15 Impression: Primary Impression: Right leg swelling Disposition: 01 HOME / SELF CARE / HOMELESS Condition: Fair Discharged With: Self Critical Care Note Critical Care Time?: No Stability Stability form required: No Heart Score Heart Score: Heart Score Response (Comments) Value History N/A 0 EKG N/A 0 Age N/A 0 Risk Factors N/A 0 Troponin N/A 0 Total 0 I personally scribed for DYLON NEGRO MD ([email or web address]) on 10/16/25 at 14:12. Electronically submitted by Arelis Hyde ([email or web address]). I personally scribed for DYLON NEGRO MD ([email or web address]) on 10/16/25 at 14:14. Electronically submitted by Arelis Hyde ([email or web address]). I personally scribed for DYLON NEGRO MD ([email or web address]) on 10/16/25 at 14:50. Electronically submitted by Janna King ([email or web address]). DYLON NEGRO MD Oct 16, 2025 14:12
--- NOTE | 2025-10-16 14:37 | DVH ---
Right lower extremity venous duplex CLINICAL HISTORY: pain and swelling COMPARISON: US BILAT LOW EXT ART DUPLEX on DOS: 12/22/23 TECHNIQUE: Duplex Doppler evaluation of the deep venous system of the right lower extremity from the common femoral vein to the popliteal vein including color Doppler and spectral/pulsed waveform analysis was performed. FINDINGS: The common femoral vein demonstrates appropriate compressibility and waveform variability. There is compressibility/patency of the great saphenous vein at the proximal thigh. The femoral vein demonstrates appropriate compressibility and waveform variability. The deep femoral vein demonstrates appropriate compressibility and waveform variability. The popliteal vein demonstrates appropriate compressibility and waveform variability. There is normal compressibility at the tibioperoneal trunk. IMPRESSION: No right femoropopliteal venous thrombosis.
[2025-10-16 15:44] VITALS: BP 110/52; PULSE 53; RESP 17; TEMP 97.8; O2SAT 94
== END 2025-10-16 16:40 | disposition home or self-care (01) ==
LOC: ER 13:48
DX: M79.604 Pain in right leg (principal); I10 Essential (primary) hypertension; E78.5 Hyperlipidemia, unspecified; Z90.49 Acquired absence of other specified parts of digestive tract; Z90.89 Acquired absence of other organs; Z88.8 Allergy status to other drugs, medicaments and biological substances; Z79.899 Other long term (current) drug therapy
CPT/HCPCS: 93971